=== PATIENT | female | born 1955 | race Caucasian/White ===

== ENCOUNTER → 2017-04-21 13:38 | Outpatient (CLI) | payer MEDICARE ==
[2013-06-29 15:06] VITALS: BMI 26.0
[~2017-04-21 13:38] MED LIST: COUMADIN5 MG PO; FENOGLIDE40 MG; LEVOTHROID88 MCG PO; PERCOCET 10/3251 TA1 PO; PRILOSEC20 MG PO; TRIGLIDE160 MG PO
== END | disposition home or self-care (01) ==
LOC: D.MAMMO 02-27 16:15
DX: Z12.31 Encounter for screening mammogram for malignant neoplasm of breast (principal)

== ENCOUNTER 2018-10-06 12:30 | Outpatient (CLI) | payer BC, MEDICARE ==
[2013-06-29 15:06] VITALS: BMI 26.0
== END 2018-10-06 13:00 | disposition home or self-care (01) ==
LOC: D.MAMMO 12:30
PROVIDERS: ATTEND Obstetrics & Gynecology
DX: Z12.31 Encounter for screening mammogram for malignant neoplasm of breast (principal)

== ENCOUNTER 2018-10-26 06:48 | Day surgery (SDC) | payer BC, MEDICARE ==
[~2018-10-26] VITALS: Ht 157.5 cm; Wt 69.9 kg
[2018-10-26 07:08] LABS: HEMATOCRIT 37.2 % (36.0-48.0); HEMOGLOBIN 12.4 g/dL (12-16); MCH 29.7 pg (26.0-34.0); MCHC 33.3 g/dL (31.0-37.0); MEAN PLATELET VOLUME 11.1 fL (7.4-10.4); RBC 4.18 10x6/uL (4.00-5.40); RDW 13.1 % (11.5-14.5); WBC 4.7 10x3/uL (4.8-10.8)
[2018-10-26] MEDS ORDERED: NEURONTIN 300300 MG PO (07:38)
[2018-10-26] MEDS ORDERED: PEPCID40 MG PO (07:38)
[2018-10-26] MEDS ORDERED: PROPECIA1 MG PO (07:39)
[2018-10-26] MEDS ORDERED: PROBIOTIC1 EAC1 PO (07:39)
[2018-10-26] MEDS ORDERED: MERIBIN5 MG PO (07:39)
[2018-10-26] MEDS ORDERED: ESTRADIOL 10 MCG (07:41)
[2018-10-26 07:49] VITALS: BP 125/63; Ht 157.5 cm; Wt 69.9 kg
--- NOTE | 2018-10-30 16:30 | HP ---
PATIENT: DARRIUS AVERY MEDICAL RECORD: [id number] ACCOUNT: [id number] LOCATION:MAX : 56 ADMISSION DATE: 10/26/18 PCP: VALENTINA MARTINEZ MD HISTORY AND PHYSICAL EXAMINATION HISTORY: Ms. Avery is a 63-year-old female with chronic tonsil problems, irritation, tonsilliths, uvular edema. She is being admitted for tonsillectomy and uvulectomy. PAST MEDICAL HISTORY: Includes hypothyroidism, seizures. PAST SURGICAL HISTORY: Includes tubal ligation and reversal and another tubal, knee surgery, cholecystectomy, appendectomy. SOCIAL HISTORY: Never used tobacco. CURRENT MEDICATIONS: Levothyroxine, fenofibrate, gabapentin, finasteride. ALLERGIES: VANCOMYCIN. PHYSICAL EXAMINATION: GENERAL: She is healthy appearing, developmentally normal. FACE: Normal, symmetric, no lesions. EYES: Sclerae and conjunctivae are normal. EARS: Canals and TMs normal. NOSE: She has a septal deviation, but no complaints of nasal obstruction. ORAL CAVITY AND OROPHARYNX: She has a floppy palate, long uvula, cryptic irritated tonsils. NECK: No masses. No adenopathy. CHEST: Clear. CARDIOVASCULAR: Regular rate and rhythm. No murmur. EXTREMITIES: Normal. IMPRESSION: Snoring, tonsillitis, uvular edema. PLAN: Tonsillectomy and uvulectomy. TRANSINT:[id number] Voice Confirmation ID: [id number] DOCUMENT ID: [id number] BE SOSA MD at 1630 CC: [id number] DICTATION DATE: 10/22/18 1034 CARE COORDINATION MANAGER: 10/22/18 1134 [facility] 10/26/18 [facility] [address] [place] [address]
--- NOTE | 2018-10-30 16:30 | OP ---
PATIENT NAME: DARRIUS AVERY MEDICAL RECORD: [id number] :57 LOCATION:D[facility] ADMISSION DATE: SURGEON: BE ARTEAGA MD DATE OF OPERATION: 10/26/2018 PREOPERATIVE DIAGNOSES: Chronic tonsillitis, uvula edema. POSTOPERATIVE DIAGNOSES: Chronic tonsillitis, uvula edema. PROCEDURES: Tonsillectomy, uvulectomy. SURGEON: Be Arteaga MD ANESTHESIA: General orotracheal. BLOOD LOSS: 2 cc. PATH SPECIMENS: Right and left tonsil. COMPLICATIONS: None. DISPOSITION: Recovery stable. DESCRIPTION OF PROCEDURE: She was brought to the operating room and placed in supine position, sedated and intubated by anesthesia. The table was turned 90 degrees. Head drape was applied. She was positioned for tonsillectomy. Using a headlight, a Hugo-Valentin mouth gag was carefully inserted and elevated on a towel on her chest. The palate was examined and palpated. It was normal. A red rubber catheter was placed through the right side of the nose and the pharynx was grasped with tonsil clamp to retract the soft palate. Using a mirror, the nasopharynx was examined. The choanae and eustachian orifices were normal bilaterally. The red rubber catheter was let down and removed. The right tonsil was grasped at the superior pole with a straight Allis clamp. Spatula tip cautery on a setting of 8 was used to dissect out the tonsil along its capsule, preserving the anterior and posterior tonsillar pillar. There were copious tonsilliths. As they were on the left side, it was removed in the same fashion. Then, the uvula was removed, sparing all the mucosa of the nasopharynx with a spatula tip cautery on a setting of 10. The pharynx was irrigated. Tonsillar fossae were agitated. Suction cautery on a setting of 18 was used to control minimal oozing. With the field completely clean and dry, the uvula defect and superior tonsil fossae were closed using a combination of interrupted simple and horizontal mattress sutures with 3-0 Vicryl. Once that was completed, the field was clean and dry. Hugo-Valentin mouth gag was let down and removed. She was awakened, extubated, and transported to recovery in good condition. No complications. TRANSINT:[id number] Voice Confirmation ID: [id number] DOCUMENT ID: [id number] OPERATIVE REPORT [id number] DARRIUS AVERY ERIC MD at 1630 CC: [id number] DICTATION DATE: 10/26/18 1058 TABLE GAMES FLOOR SUPERVISOR: 10/26/18 1122 [facility] [place] 10/26/18 [place] [id number]
== END 2018-10-26 12:50 | disposition home or self-care (01) ==
LOC: D.OPS 06:48 → D.PAN 11:45 → D.OPS 11:45
PROVIDERS: Anesthesiology; ATTEND Otolaryngology
DX: J35.01 Chronic tonsillitis (principal); K13.79 Other lesions of oral mucosa; Z01.812 Encounter for preprocedural laboratory examination